=== PATIENT | female | born 1960 | race Caucasian/White ===

== ENCOUNTER 2018-07-27 10:31 | Emergency (ER) | payer MEDICARE, OTHER ==
[~2018-07-27] VITALS: Ht 154.9 cm; Wt 74.8 kg
[~2018-07-27 10:31] MED LIST: ATARAX; FOLIC ACID; FOLIC ACID0.4 MG PO; GABAPENTIN 100100 MG PO; HIGH CHOLESTEROL MED; HYDROCODONE-APA1 TA1 PO; PROTONIX40 M1 PO; PROTONIX40 MG PO; TRIGLIDE160 M1 PO
[2018-07-27] MEDS ORDERED: MELOXICAM15 MG PO (10:40)
[2018-07-27] MEDS ORDERED: FLEXERIL PO (10:41)
[2018-07-27] MEDS ORDERED: ZANTAC 150MG T150 MG PO (10:41)
[2018-07-27] MEDS ORDERED: ONE-DAILY MULT1 EAC1 PO (10:42)
[2018-07-27] MEDS ORDERED: CALCIUM + D3 E1 EACH PO (10:43)
[2018-07-27] MEDS ORDERED: VOLTAREN GEL 1100 G2 TOP (10:43)
[2018-07-27] MEDS ORDERED: TRIAMCINOLONE A80 G2 TOP (10:43)
[2018-07-27 11:16] LABS: ABSOLUTE EOSINOPHILS 0.1 thou/uL (0.0-0.7); ABSOLUTE LYMPHOCYTES 1.4 thou/uL (0.8-5.3); ABSOLUTE MONOCYTES 0.4 thou/uL (0.0-1.2); ABSOLUTE NEUTROPHILS 2.8 thou/uL (1.6-8.1); BASOPHILS 0.7 %; EOSINOPHILS 2.5 %; HEMATOCRIT 36.1 % (37.0-47.0); HEMOGLOBIN 12.2 gm/dL (12.0-15.0); MCH 28.7 pg (26.0-34.0); MCHC 33.7 g/dL (28.0-37.0); MCV 85.1 fL (80.0-100.0); MONOCYTES 8.3 %; NUCLEATED RBCS 0 /100WBC; PLATELET COUNT* 256 thou/uL (150-400); POLYS 58.5 %; RBC 4.24 mil/uL (4.20-5.00); RDW-CV 14.3 % (10.5-14.5); WBC 4.8 thou/uL (4.0-11.0)
[2018-07-27 11:24] LABS: ANION GAP 10 mmol/L (7-16); BUN 10 mg/dL (7-18); CALCIUM 8.9 mg/dL (8.5-10.1); CHLORIDE 104 mmol/L (98-107); CO2 28 mmol/L (21-32); CREATININE 1.1 mg/dL (0.6-1.3); GLUCOSE 92 mg/dL (70-99); POTASSIUM 3.7 mmol/L (3.5-5.1); SODIUM 142 mmol/L (136-145)
[2018-07-27 11:33] LABS: ALBUMIN 3.6 g/dL (3.4-5.0); ALKALINE PHOSPHATASE 89 U/L (46-116); LIPASE 87 U/L (73-393); SGOT 25 U/L (15-37); SGPT 36 U/L (30-65); TOTAL BILIRUBIN 0.4 mg/dL (<0.1-1.0); TOTAL PROTEIN 7.3 g/dL (6.4-8.2); TROPONIN-I LEVEL <0.06 ng/mL (<0.06)
[2018-07-27 12:41] LABS: URINE BILIRUBIN NEGATIVE (Negative); URINE BLOOD NEGATIVE (Negative); URINE CLARITY CLEAR; URINE COLOR YELLOW; URINE GLUCOSE-RANDOM NEGATIVE (Negative); URINE KETONES NEGATIVE (Negative); URINE LEUKOCYTES-REFLEX NEGATIVE (Negative); URINE NITRITE-REFLEX NEGATIVE (Negative); URINE PROTEIN NEGATIVE (Negative); URINE UROBILINOGEN 0.2 E.U./dl (0.2-1.0)
[2018-07-27 12:48] LABS: AMP/METHAMP Negative (Negative); BARBITURATES Negative (Negative); BENZODIAZEPINES Negative (Negative); COCAINE Negative (Negative); METHADONE Negative (Negative); OPIATES Negative (Negative); PCP Negative (Negative); THC Negative (Negative)
[2018-07-27] MEDS ORDERED: MECLIZINE HCL25 MG PO (12:56)
[2018-07-27] MEDS ORDERED: ONDANSETRON HCL4 M2 PO (12:56)
[2018-07-27 13:00] VITALS: BP 138/96
--- NOTE | 2018-07-29 13:04 | EKG ---
[place] [address] ELECTROCARDIOGRAM REPORT Name: MINI BUSTAMANTE Room: [facility]#: [id number] Admission: 07/27/18 Attend Phys: Discharge: 07/27/18 Date of : 56 Report #: [id number] THIS REPORT FOR: //name// [facility] ED Test Date: 2018-07-27 Test Time: 11:19:22 Pat Name: MINI BUSTAMANTE Department: Room: Gender: F Machine Icer: : 1960 Requested By: Mervat Dowd Order Number: [id number] MD: German Garcia Measurements Intervals [place] Rate: 72 P: 63 ME: 155 QRS: 5 QRSD: 103 T: 31 QT: 427 QTc: 468 Interpretive Statements Sinus rhythm RSR' in V1 or V2, right VCD or RVH Compared to ECG 07/28/2009 16:37:25 RSR' in V1 or V2 now present T-wave abnormality no longer present Electronically Signed On 07-29-2018 13:04:11 CDT by German Garcia [email or web address] <ELECTRONICALLY SIGNED> By: German Garcia MD, [facility] 07/29/18 1304 1119 1119 German Garcia MD, [facility] /EPI
== END 2018-07-27 13:01 | disposition home or self-care (01) ==
LOC: M.ERS 10:31
PROVIDERS: Nurse Practitioner Family
DX: H81.10 Benign paroxysmal vertigo, unspecified ear (principal); E78.00 Pure hypercholesterolemia, unspecified; R11.2 Nausea with vomiting, unspecified; M06.9 Rheumatoid arthritis, unspecified; M79.7 Fibromyalgia; K21.9 Gastro-esophageal reflux disease without esophagitis; Z90.49 Acquired absence of other specified parts of digestive tract

== ENCOUNTER 2019-03-07 14:03 | Emergency (ER) | payer MEDICARE, OTHER ==
[~2019-03-07] VITALS: Ht 157.5 cm; Wt 72.6 kg
[~2019-03-07 14:03] MED LIST changes: +CALCIUM + D3 E1 EACH PO; +FLEXERIL PO; +MECLIZINE HCL25 MG PO; +MELOXICAM15 MG PO; +ONDANSETRON HCL4 M2 PO; +ONE-DAILY MULT1 EAC1 PO; +TRIAMCINOLONE A80 G2 TOP; +VOLTAREN GEL 1100 G2 TOP; +ZANTAC 150MG T150 MG PO
[2019-03-07 14:47] LABS: INFLUENZA A ANTIGEN Positive (Negative); INFLUENZA B ANTIGEN Negative (Negative)
[2019-03-07] MEDS ORDERED: TESSALON PERLE100 M1 PO (15:35)
[2019-03-07] MEDS ORDERED: PROAIR HFA8.5 GM INH (15:35)
[2019-03-07] MEDS ORDERED: TAMIFLU75 MG PO (15:35)
[2019-03-07 15:52] VITALS: BP 112/75
== END 2019-03-07 15:53 | disposition home or self-care (01) ==
LOC: M.ERS 14:03
PROVIDERS: Physician Assistant
DX: J10.1 Influenza due to other identified influenza virus with other respiratory manifestations (principal); E78.00 Pure hypercholesterolemia, unspecified; M06.9 Rheumatoid arthritis, unspecified; M79.7 Fibromyalgia; K21.9 Gastro-esophageal reflux disease without esophagitis; Z90.49 Acquired absence of other specified parts of digestive tract; Z98.890 Other specified postprocedural states; Z90.89 Acquired absence of other organs

== ENCOUNTER → 2019-08-03 | Outpatient (CLI) | payer MEDICARE, OTHER ==
[~2019-08-03] MED LIST changes: +PROAIR HFA8.5 GM INH; +TAMIFLU75 MG PO; +TESSALON PERLE100 M1 PO
== END ==
LOC: M.LAB 15:33
PROVIDERS: ATTEND Internal Medicine Gastroenterology
DX: Z01.812 Encounter for preprocedural laboratory examination (principal); R85.5 Abnormal microbiological findings in specimens from digestive organs and abdominal cavity; Z86.010 Personal history of colon polyps; K44.9 Diaphragmatic hernia without obstruction or gangrene; K21.9 Gastro-esophageal reflux disease without esophagitis